=== PATIENT | male | born 1990 | race Caucasian/White ===

== ENCOUNTER → 2020-10-03 | Outpatient (CLI) | payer OTHER ==
[2020-10-03 14:36] LABS: BF LYMPHOCYTES 56 %; BF MONOCYTES 5 %; BF POLYS 39 %; CLARITY CLOUDY; SOURCE KNEE (RIGHT); TOTAL VOLUME 60 ml
[2020-10-03 14:37] LABS: BF RBC 3470 /mm3; TOTAL CELL COUNT 7979 /mm3
[2020-10-04 11:07] LABS: BF CRYSTALS NCRSL (None seen)
[2020-10-04 12:07] LABS: BODY FLUID PROTEIN 5.7 g/dL (())
== END ==
LOC: M.LAB 11:09
PROVIDERS: ATTEND Orthopaedic Surgery
DX: M25.461 Effusion, right knee (principal)